=== PATIENT | male | born 1965 | race Caucasian/White ===

== ENCOUNTER → 2023-10-01 06:30 | Day surgery (SDC) | payer OTHER, SELFPAY | LOC: GI 06:30 | PROVIDERS: ATTENDING PHYSICIAN Internal Medicine | DX: Z12.11 Encounter for screening for malignant neoplasm of colon (principal); K64.8 Other hemorrhoids | CPT/HCPCS: G0121 ==

== ENCOUNTER → 2024-07-17 08:58 | Outpatient (REF) | payer SELFPAY | LOC: HWRAD 08:58 | PROVIDERS: ATTENDING PHYSICIAN Nurse Practitioner Adult Health | DX: E78.00 Pure hypercholesterolemia, unspecified (principal); Z82.49 Family history of ischemic heart disease and other diseases of the circulatory system | CPT/HCPCS: 75571 ==